=== PATIENT | male | born 1955 | race Caucasian/White ===

== ENCOUNTER 2017-10-20 11:46 | Emergency (ER) | payer SELFPAY ==
[2017-10-20] MEDS ORDERED: Ondansetron 4 MG/2 ML SDV ONE (11:55)
[2017-10-20] MEDS ORDERED: Ondansetron 4 MG/2 ML SDV IVPUSH ONE (11:56)
[2017-10-20] MEDS ORDERED: Morphine 2 MG/ML Syringe IVPUSH ONE (11:56)
[2017-10-20] MEDS ORDERED: Aspirin 81 MG Tab.Chew PO ONE (11:56)
[2017-10-20] MEDS ORDERED: Aspirin 81 MG Tab.Chew ONE (11:56)
[2017-10-20] MEDS ORDERED: Morphine 2 MG/ML Syringe ONE (11:57)
[2017-10-20] MEDS ORDERED: Nitroglycerin/D5W 25 MG/250 ML BOTTLE IV SCH (12:00)
--- NOTE | 2017-10-20 12:04 | EDM.PDOC ---
ED HPI GENERAL MEDICAL PROBLEM - General Chief Complaint: Chest Pain Stated Complaint: TROUBLE BREATHING Time Seen by Provider: 10/20/17 12:04 - History of Present Illness INITIAL COMMENTS - FREE TEXT/NARRATIVE: HISTORY AND PHYSICAL: History of present illness: Patient is a 62-year-old white male with history of recently diagnosed pulmonary cancer was not receive any treatment for this who presents with concern of chest pain that awoke him from sleep at approximately 10 AM this is mid and left chest with radiation to his mid back with associated shortness of breath he denies palpitations nausea or vomiting. He denies history of coronary artery disease or prior pulmonary embolism Review of systems: As per history of present illness and below otherwise all systems reviewed and negative. Past medical history: As per history of present illness and as reviewed below otherwise noncontributory. Surgical history: As per history of present illness and as reviewed below otherwise noncontributory. Social history: No reported history of drug or alcohol abuse. Family history: As per history of present illness and as reviewed below otherwise noncontributory. Physical exam: HEENT: Atraumatic, normocephalic, pupils reactive, negative for conjunctival pallor or scleral icterus, mucous membranes moist, throat clear, neck supple, nontender, trachea midline. Lungs: Diminished, breath sounds equal bilaterally, chest nontender. Heart: S1S2, regular, negative for clicks, rubs, or JVD. Abdomen: Soft, nondistended, nontender. Negative for masses or hepatosplenomegaly. Negative for costovertebral tenderness. Pelvis: Stable nontender. Genitourinary: Deferred. Rectal: Deferred. Extremities: Atraumatic, negative for cords or calf pain. Neurovascular unremarkable. Neuro: Awake, alert, oriented, anxious. Cranial nerves II through XII unremarkable. Cerebellum unremarkable. Motor and sensory unremarkable throughout. Exam nonfocal. Diagnostics: CBC CMP d-dimer PT/INR troponin EKG chest x-ray Therapeutics: IV O2 monitor aspirin 324 mg nitroglycerin per drip morphine sulfate 2 mg IV Zofran 4 mg IV Impression: #1 chest pain rule out acute coronary syndrome #2 history of pulmonary cancer Definitive disposition and diagnosis as appropriate pending reevaluation and review of above. - Related Data Allergies Allergy/AdvReac Type Severity Reaction Status Date / Time codeine Allergy Itching Verified 10/20/17 11:55 ED ROS GENERAL - Review of Systems Review Of Systems: ROS reveals no pertinent complaints other than HPI. ED EXAM, GENERAL - Physical Exam Exam: See Below (See dictation) Course - Orders/Labs/Meds Meds: Medications Discontinued Medications Generic Name Dose Route Start Last Admin Trade Name Freq PRN Reason Stop Dose Admin Aspirin Confirm 10/20/17 11:56 Aspirin Administered 10/20/17 11:57 Dose 324 mg .ROUTE .STK-MED ONE Morphine Sulfate Confirm 10/20/17 11:57 Morphine Administered 10/20/17 11:58 Dose 2 mg .ROUTE .STK-MED ONE Ondansetron HCl Confirm 10/20/17 11:55 Zofran Administered 10/20/17 11:56 Dose 4 mg .ROUTE .STK-MED ONE Departure - Departure Time of Disposition: 12:01 Disposition: DC/Tfer to Acute Hospital 02 Condition: Undetermined Clinical Impression: Acute coronary syndrome - Discharge Information Referrals: PCP,None [Primary Care Provider] -
[2017-10-20] MEDS ORDERED: Enoxaparin 60 MG/0.6 ML Syringe SUBCUT ONE (12:24)
[2017-10-20] MEDS ORDERED: Enoxaparin 100 MG/1 ML Syringe ONE (12:28)
[2017-10-20 12:34] LABS: CHLORIDE,CL 101 mmol/L (98-110); SODIUM,NA 137 mmol/L (136-146)
--- NOTE | 2017-10-23 18:17 | CR ---
EXAM DATE: 10/20/17 PATIENT'S AGE: 62 Patient: LIS LAM Facility: [place], [place] Site . Site : 1955 Study: XRay Chest [id number] 12:05:43 PM Ordering Physician: Doctor Castillo Final Report: INDICATION: Chest pain. Shortness of breath HISTORY: Chest pain. Shortness of breath. COMPARISON: None. TECHNIQUE: Chest 1 view. FINDINGS: Airspace opacities in the right lung are compatible with pneumonia. Radiographic followup is advised to document resolution. If these do not resolve appropriately therapy, CT may be obtained to further assess. Mild volume loss is present in the right lung. There is right apical pleural capping. The central airway is normal. The osseous structures are intact. Mild blunting of the right lateral costophrenic sulcus. This could indicate a small right pleural effusion or pleural thickening. IMPRESSION: 1. Airspace disease in the right lung is compatible with pneumonia. 2. Radiographic followup is advised to document resolution. Dictated by Wili Berrios MD @ 10/20/2017 12:49:42 PM Dictated by: Wili Berrios MD @ 10/20/2017 12:49:49 (Electronic Signature) Report Signed by Proxy. ANGEL
== END 2017-10-20 12:35 ==
LOC: MW.ED 11:46
DX: I24.9 Acute ischemic heart disease, unspecified (principal); Z88.5 Allergy status to narcotic agent; Z85.118 Personal history of other malignant neoplasm of bronchus and lung
CPT/HCPCS: 36415; 71010; 80053; 82550; 82553; 83880; 84484; 85025; 85379; 85610; 93005; 96365; 96372; 96375; 99285; A9270; J1650; J2270; J2405; 99281

== ENCOUNTER 2017-10-28 12:09 | Emergency (ER) | payer SELFPAY ==
--- NOTE | 2017-10-28 13:24 | EDM.PDOC ---
ED HPI GENERAL MEDICAL PROBLEM - General Chief Complaint: General Stated Complaint: BODYACHES Time Seen by Provider: 10/28/17 13:08 Source of Information: Reports: Patient History Limitations: Reports: No Limitations - History of Present Illness INITIAL COMMENTS - FREE TEXT/NARRATIVE: History of present illness: []Patient was diagnosed with lung cancer early September in [place] and flew to [place] to visit his sons for [place]. While he was here he developed pneumonia and was transferred from [facility] to [facility] for treatment. He was on 15 mg of morphine in addition to his extended relief morphine but was discharged from [facility] on Percocet. The Percocet is upsetting his stomach and states it does not help with his pain. Patient denies any increase or change in shortness of breath, fevers, cough or chest pain. Patient has not started chemotherapy as of yet. He is going back to [place] to start on Review of systems: As per history of present illness and below otherwise all systems reviewed and negative. Past medical history: As per history of present illness and as reviewed below otherwise noncontributory. Surgical history: As per history of present illness and as reviewed below otherwise noncontributory. Social history: No reported history of drug or alcohol abuse. Family history: As per history of present illness and as reviewed below otherwise noncontributory. Physical exam: General: Well developed, well nourished in NAD HEENT: Atraumatic, normocephalic, pupils reactive, negative for conjunctival pallor or scleral icterus, mucous membranes moist, throat clear, neck supple, nontender, trachea midline. Lungs: Clear to auscultation, breath sounds equal bilaterally, chest nontender. Heart: S1S2, regular, negative for clicks, rubs, or JVD. Abdomen: Soft, nondistended, nontender. Negative for masses or hepatosplenomegaly. Negative for costovertebral tenderness. Pelvis: Stable nontender. Genitourinary: Deferred. Rectal: Deferred. Extremities: Atraumatic, negative for cords or calf pain. Neurovascular unremarkable. Neuro: Awake, alert, oriented. Cranial nerves II through XII unremarkable. Cerebellum unremarkable. Motor and sensory unremarkable throughout. Exam nonfocal. Diagnostics: [] Therapeutics: [] Impression: []Med refill, history of lung cancer Plan: []Follow-up with PMD return if symptoms worsen or change Definitive disposition and diagnosis as appropriate pending reevaluation and review of above. upper back Pain Score (Numeric/FACES): 8 - Related Data Allergies Allergy/AdvReac Type Severity Reaction Status Date / Time codeine Allergy Itching Verified 10/28/17 12:47 Home Meds: Home Meds Azithromycin 500 mg PO DAILY 10/28/17 [History] Levofloxacin [Levaquin] 250 mg PO DAILY 10/28/17 [History] Morphine 15 mg PO Q2H 10/28/17 [History] Morphine 15 mg PO Q6H PRN #16 tablet 10/28/17 [Rx] oxyCODONE HCl/Acetaminophen [Percocet 5-325 mg Tablet] 5 mg PO Q4H 10/28/17 [ History] Past Medical History HEENT History: Reports: None Cardiovascular History: Reports: None Respiratory History: Reports: Other (See Below) Other Respiratory History: Lung Cancer Gastrointestinal History: Reports: None Genitourinary History: Reports: None Musculoskeletal History: Reports: None Neurological History: Reports: None Psychiatric History: Reports: None Endocrine/Metabolic History: Reports: None Hematologic History: Reports: None Immunologic History: Reports: None Oncologic (Cancer) History: Reports: None Dermatologic History: Reports: None - Infectious Disease History Infectious Disease History: Reports: Chicken Pox, Mumps - Past Surgical History Head Surgeries/Procedures: Reports: None HEENT Surgical History: Reports: None Cardiovascular Surgical History: Reports: None Respiratory Surgical History: Reports: None GI Surgical History: Reports: Colonoscopy Male Surgical History: Reports: None Endocrine Surgical History: Reports: None Neurological Surgical History: Reports: None Musculoskeletal Surgical History: Reports: None Oncologic Surgical History: Reports: None Dermatological Surgical History: Reports: None Social & Family History - Family History Family Medical History: Noncontributory - Tobacco Use Smoking Status *Q: Current Every Day Smoker Years of Tobacco use: 40 Packs/Tins Daily: 0.5 - Caffeine Use Caffeine Use: Reports: Coffee - Recreational Drug Use Recreational Drug Use: No ED ROS GENERAL - Review of Systems Review Of Systems: See Below (See history of present illness) ED EXAM, GENERAL - Physical Exam Exam: See Below (See history of present illness) Course - Vital Signs Last Recorded V/S: Last Vital Signs Temp 97.4 F 10/28/17 12:49 Pulse 85 10/28/17 12:49 Resp 22 H 10/28/17 12:49 BP 114/73 10/28/17 12:49 Pulse Ox 97 10/28/17 12:49 Departure - Departure Time of Disposition: 13:24 Disposition: Home, Self-Care 01 Condition: Good Clinical Impression: Medication refill - Discharge Information Prescriptions: Morphine 15 mg PO Q6H PRN #16 tablet PRN Reason: Pain Referrals: PCP,None [Primary Care Provider] - Forms: ED Department Discharge
== END 2017-10-28 13:55 | disposition home or self-care (01) ==
LOC: MW.ED 12:09
DX: Z76.0 Encounter for issue of repeat prescription (principal); C34.90 Malignant neoplasm of unspecified part of unspecified bronchus or lung; F17.210 Nicotine dependence, cigarettes, uncomplicated; Z88.5 Allergy status to narcotic agent; Z79.899 Other long term (current) drug therapy; Z85.118 Personal history of other malignant neoplasm of bronchus and lung
CPT/HCPCS: 99282; 99283